=== PATIENT | male | born 1975 | race Caucasian/White ===

== ENCOUNTER 2016-10-06 16:07 | Emergency (ER) | payer OTHER ==
[~2016-10-06] VITALS: Ht 165.1 cm; Wt 77.1 kg
--- NOTE | ~2016-10-06 | EKG ---
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
[2016-10-06] MEDS ORDERED: CHOLESTEROL PILL (16:22)
[2016-10-06 17:16] LABS: ABSOLUTE NEUTROPHILS 4.2 thou/uL (1.4-8.2); BASOPHILS 0.4 % (0.0-2.0); EOSINOPHILS 0.7 % (0.0-3.0); HEMATOCRIT 43.6 % (42.0-52.0); LYMPHOCYTES 27.1 % (24.0-44.0); MCH 30.7 pg (26.0-34.0); MCHC 34.4 g/dL (28.0-37.0); MCV 89.4 fL (80.0-100.0); MONOCYTES 8.5 % (1.0-8.0); PLATELET COUNT 177 thou/uL (150-400); POLYS 63.3 % (36.0-66.0); RBC 4.88 mil/uL (4.50-6.00); RDW 13.2 % (10.5-14.5); WBC 6.6 thou/uL (4.0-11.0)
[2016-10-06 17:19] LABS: MANUAL DIFF NO
[2016-10-06 17:48] LABS: ANION GAP 8 mmol/L (7-16); BUN 16 mg/dL (7-18); CALCIUM 8.5 mg/dL (8.5-10.1); CHLORIDE 101 mmol/L (98-107); CO2 27 mmol/L (21-32); CREATININE 0.8 mg/dL (0.6-1.3); GLUCOSE 137 mg/dL (70-99); POTASSIUM 3.6 mmol/L (3.5-5.1); SODIUM 136 mmol/L (136-145)
[2016-10-06 17:55] LABS: ALBUMIN 3.7 g/dL (3.4-5.0); ALKALINE PHOSPHATASE 107 U/L (46-116); SGOT 18 U/L (15-37); SGPT 31 U/L (30-65); TOTAL BILIRUBIN 1.3 mg/dL (<0.1-1.0); TROPONIN-I < 0.04 ng/mL (<0.04-0.07)
[2016-10-06 18:05] LABS: TOTAL PROTEIN 7.8 g/dL (6.4-8.2)
[2016-10-06 19:16] VITALS: BP 126/95
== END 2016-10-06 19:17 | disposition home or self-care (01) ==
LOC: ER 16:07 → EDBD 16:07 → ER 19:17
PROVIDERS: Physician Assistant
DX: R00.2 Palpitations (principal); T43.615A Adverse effect of caffeine, initial encounter; R51 Headache; F43.0 Acute stress reaction; I10 Essential (primary) hypertension; F17.210 Nicotine dependence, cigarettes, uncomplicated; F10.99 Alcohol use, unspecified with unspecified alcohol-induced disorder; Y92.89 Other specified places as the place of occurrence of the external cause

== ENCOUNTER 2017-10-06 05:42 | Emergency (ER) | payer OTHER ==
[~2017-10-06] VITALS: Ht 177.8 cm; Wt 81.7 kg
--- NOTE | ~2017-10-06 | EKG ---
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
[~2017-10-06 05:42] MED LIST: CHOLESTEROL PILL
[2017-10-06] MEDS ORDERED: NOHOMEMEDICATIONS (06:09)
[2017-10-06 06:31] LABS: ABSOLUTE NEUTROPHILS 4.6 thou/uL (1.4-8.2); BASOPHILS 0.5 % (0.0-2.0); EOSINOPHILS 1.4 % (0.0-3.0); HEMATOCRIT 46.1 % (42.0-52.0); HEMOGLOBIN 15.8 gm/dL (14.0-18.0); LYMPHOCYTES 24.4 % (24.0-44.0); MCH 30.9 pg (26.0-34.0); MCHC 34.3 g/dL (28.0-37.0); MCV 90.1 fL (80.0-100.0); MONOCYTES 8.6 % (1.0-8.0); PLATELET COUNT 186 thou/uL (150-400); POLYS 65.1 % (36.0-66.0); RBC 5.12 mil/uL (4.50-6.00); RDW 13.3 % (10.5-14.5); WBC 7.1 thou/uL (4.0-11.0)
[2017-10-06 06:34] LABS: ANION GAP 10 mmol/L (7-16); BUN 11 mg/dL (7-18); CALCIUM 8.8 mg/dL (8.5-10.1); CHLORIDE 102 mmol/L (98-107); CO2 28 mmol/L (21-32); CREATININE 0.8 mg/dL (0.7-1.3); GLUCOSE 115 mg/dL (74-106); POTASSIUM 4.1 mmol/L (3.5-5.1); SODIUM 140 mmol/L (136-145)
[2017-10-06 06:42] LABS: TROPONIN-I < 0.04 ng/mL (<0.06)
[2017-10-06] MEDS ORDERED: CARAFATE 1 GM TA1 GM PO (07:01)
[2017-10-06] MEDS ORDERED: ZOFRAN4 MG PO (07:01)
[2017-10-06] MEDS ORDERED: OMEPRAZOLE20 M1 PO (07:01)
[2017-10-06] MEDS ORDERED: NORCO 5-325 TA1 EACH PO (07:14)
[2017-10-06 07:41] VITALS: BP 134/92
== END 2017-10-06 07:40 | disposition home or self-care (01) ==
LOC: ER 05:42
PROVIDERS: Emergency Medicine
DX: K29.00 Acute gastritis without bleeding (principal); I10 Essential (primary) hypertension; J45.909 Unspecified asthma, uncomplicated; Z87.891 Personal history of nicotine dependence